=== PATIENT | female | born 1995 | race Caucasian/White ===

== ENCOUNTER 2017-03-11 10:59 | Emergency (ER) | payer OTHER ==
--- NOTE | 2017-03-11 13:13 | UC ---
Ear Complaint HPI - HPI Summary HPI Summary: 21 y/o female presents to the urgent care c/o Rt ear pain for the past 2 weeks. Pt reports symptoms started with nasal congestion and clear discharge and mild cold. However she feels she feels ear pressure with sinus pressure and diminish hearing. She just started to take the flonase nasal spray and Claritin PO. Ear pain is 4/10. Pt denies fever, cough, SOB, chest pain, N/V/D, abdominal pain. - History of Current Complaint Stated Complaint: EAR COMPLAINT Time Seen by Provider: 03/11/17 13:12 Hx Obtained From: Patient Hx Last Menstrual Period: 01/10/15 ?: No Onset/Duration: Gradual Onset, Lasting Days - 2 weeks, Still Present Severity Initially: Mild Severity Currently: Moderate Pain Intensity: 0 Pain Scale Used: 0-10 Numeric Aggravating Factors: Nothing Alleviating Factors: OTC Meds Associated Signs/Symptoms: Positive: Hearing Loss, URI Symptoms Related History: Seasonal Allergies - Allergies/Home Medications Allergies/Adverse Reactions: Allergies Allergy/AdvReac Type Severity Reaction Status Date / Time airborne allergens Allergy Congestion Uncoded 03/11/17 13:17 Home Medications: Home Medications Lisdexamfetamine Dimesylate [Vyvanse] 1 tab PO DAILY 03/11/17 [History Confirmed 03/11/17] PMH/Surg Hx/FS Hx/Imm Hx Previously Healthy: Yes - Pt denies PMHX - Surgical History Surgical History: None Surgery Procedure, Year, and Place: tonsillectomy 2016 - Family History Known Family History: Negative: Hypertension, Diabetes, Respiratory Disease - Social History Occupation: Student Lives: With Family Alcohol Use: Occasionally Substance Use Type: None Smoking Status (MU): Never Smoked Tobacco - Immunization History Vaccination Up to Date: Yes Review of Systems Constitutional: Negative Skin: Negative Eyes: Negative ENT: Ear Ache - RT ear pain, Nasal Discharge, Sinus Congestion, Sinus Pain/ Tenderness Respiratory: Negative Cardiovascular: Negative Gastrointestinal: Negative Genitourinary: Negative Motor: Negative Neurovascular: Negative Musculoskeletal: Negative Neurological: Negative Psychological: Negative Is Patient Immunocompromised?: No All Other Systems Reviewed And Are Negative: Yes Physical Exam Triage Information Reviewed: Yes - Additional Comments Vitral signs: reviewed General: Well developed, well-nourished patient with NAD. Head and face: Normocephalic and atraumatic, Positive tenderness over the frontal and maxillary sinuses.. Eyes: PERRLA, EOMI x 2. Normal conjunctiva. No eye discharge. ENT: Ears and TM with normal limits. Nose: with yellowish discharge and erythematous mucosa. Pharynx with erythema, no exudate. Neck: Supple, no JVD, no carotid bruits and no lymphadenopathy. Lungs: clear, no rales, no rhonchi, no wheezes. CVS: RRR, S1 and S2 present no murmurs or gallops appreciated. Abdomen: soft nontender with positive bowel sounds. Extremities: no edema noted. Neuro: WNL. Ear Complaint Course/Dx - Course Course Of Treatment: 21 y/o female presents to the urgent care c/o Rt ear pain for the past 2 weeks. Pt reports symptoms started with nasal congestion and clear discharge and mild cold. However she feels she feels ear pressure with sinus pressure and diminish hearing. She just started to take the flonase nasal spray and Claritin PO. Ear pain is 4/10. Pt denies fever, cough, SOB, chest pain, N/V/D, abdominal pain, recent travel. Hx obtained. Pt with acute sinusitis on examination. Pt advised to continue taking the Claritin PO and use the flonase nasal spray. Rx ibuprofen PO for ACUNA. Discharge instructions explained to Pt. Advised to Return to the clinic or PCP if symptoms do not improve.Pt understood and agreed with plan of care. - Differential Dx/Diagnosis Differential Diagnosis/HQI/PQRI: Barotrauma, Otitis Media, Perforated TM, Pharyngitis, URI, Other - sinusitis Provider Diagnoses: 1-Acute sinusitis Discharge - Discharge Plan Condition: Stable Disposition: HOME Prescriptions: Ibuprofen TAB* [Motrin TAB* 800 MG] 800 mg PO Q6H #20 tab Patient Education Materials: Sinusitis (ED) Forms: *School Release Referrals: Non Staff,Doctor [Primary Care Provider] - [facility] [Outside] - If Needed Additional Instructions: 1- Please increase fluid intake and rest. Take Ibuprofen Po q6-8hrs if ear pain increases. 2-Use Flonase as directed to help drain fluid. Also buy saline drops to clear sinuses 3-Take Sudafed or Claritin PO to alleviates sinus congestion 4-Return to the clinic or PCP if symptoms do not improve for further management and treatment
[2017-03-11 13:18] VITALS: BP 117/62
== END 2017-03-11 13:41 | disposition home or self-care (01) ==
LOC: UCCORT 10:59
DX: J01.90 Acute sinusitis, unspecified (principal); H92.01 Otalgia, right ear; Z90.89 Acquired absence of other organs
CPT/HCPCS: 99211; G0463